=== PATIENT | female | born 1965 | race Caucasian/White ===

== ENCOUNTER 2017-05-16 16:46 | Emergency (ER) | payer OTHER, BC ==
[~2017-05-16] VITALS: Ht 162.6 cm; Wt 110.4 kg
[~2017-05-16 16:46] MED LIST: BENADRYL25 MG PO; PAXIL20 MG PO
[2017-05-16] MEDS ORDERED: ULTRACET1 TABLET PO (22:30)
[2017-05-16] MEDS ORDERED: INDOCIN50 MG PO (22:30)
[2017-05-16 22:42] VITALS: BP 140/89
== END 2017-05-16 22:42 | disposition home or self-care (01) ==
LOC: EME 16:46
DX: S20.219A Contusion of unspecified front wall of thorax, initial encounter (principal); V49.40XA Driver injured in collision with unspecified motor vehicles in traffic accident, initial encounter; Y92.410 Unspecified street and highway as the place of occurrence of the external cause; F41.9 Anxiety disorder, unspecified; F32.9 Major depressive disorder, single episode, unspecified
CPT/HCPCS: 71046; 71120; 93005; 99281; 99283